=== PATIENT | male | born 1970 | race Two or more races ===

== ENCOUNTER 2022-02-20 20:12 | Emergency (ER) | payer OTHER, BC | END 2022-02-20 21:05 | disposition home or self-care (01) | LOC: FB.ED 20:12 | DX: S60.222A Contusion of left hand, initial encounter (principal); Z88.8 Allergy status to other drugs, medicaments and biological substances; Z88.5 Allergy status to narcotic agent; W23.1XXA Caught, crushed, jammed, or pinched between stationary objects, initial encounter | CPT/HCPCS: 73130-LT; 99000; 99281; 99283 ==

== ENCOUNTER 2024-04-02 18:23 | Emergency (ER) | payer OTHER, BC | END 2024-04-02 21:00 | disposition home or self-care (01) | LOC: FB.ED 18:23 | DX: S63.501A Unspecified sprain of right wrist, initial encounter (principal); Z88.5 Allergy status to narcotic agent; Z88.8 Allergy status to other drugs, medicaments and biological substances; X58.XXXA Exposure to other specified factors, initial encounter; Y92.89 Other specified places as the place of occurrence of the external cause; Y99.0 Civilian activity done for income or pay | CPT/HCPCS: 73110-RT; 99283 ==

== ENCOUNTER 2025-01-11 08:40 | Day surgery (SDC) | payer BC ==
[2025-01-11] MEDS ORDERED: Ketamine 500 mg/10 ML MDV IV ONE (08:41)
[2025-01-11] MEDS ORDERED: Midazolam 1 MG/ML 2 ML SDV IV ONE (08:41)
[2025-01-11] MEDS ORDERED: Propofol 200 MG/20 ML SDV IV ONE (08:41)
[2025-01-11] MEDS ORDERED: Sodium Chloride 0.9% 10 ML Syringe FLUSH PRN (09:00)
[2025-01-11] MEDS: Lactated Ringers 1,000 ML IV SCH (09:23)
[2025-01-11] MEDS: Simethicone Drops 40 MG/0.6 ML 30 ML Bottle ONE (09:24)
== END 2025-01-11 10:50 | disposition home or self-care (01) ==
LOC: FB.SDS 08:40
PROVIDERS: ATTEND Surgery
DX: D50.9 Iron deficiency anemia, unspecified (principal); K62.5 Hemorrhage of anus and rectum; K64.1 Second degree hemorrhoids; K42.0 Umbilical hernia with obstruction, without gangrene; I10 Essential (primary) hypertension; E66.01 Morbid (severe) obesity due to excess calories; Z88.8 Allergy status to other drugs, medicaments and biological substances; Z88.5 Allergy status to narcotic agent; Z68.41 Body mass index [BMI] 40.0-44.9, adult; Z87.891 Personal history of nicotine dependence; Z79.899 Other long term (current) drug therapy
CPT/HCPCS: 00811; A9270-GY; J2250; J2704; J3490; J7120